=== PATIENT | female | born 1980 | race Caucasian/White ===

== ENCOUNTER 2016-10-14 17:52 | Emergency (ER) | payer BC, OTHER ==
[2016-10-14 18:41] VITALS: BP 119/66
--- NOTE | 2016-10-14 19:06 | UC ---
Throat Pain/Nasal James HPI - HPI Summary HPI Summary: 35 yo female with sinus pressure and pain x days post nasal drip upper teeth and gums sensitive - History of Current Complaint Chief Complaint: UCRespiratory Stated Complaint: SINUS CONGESTION Time Seen by Provider: 10/14/16 18:47 Hx Last Menstrual Period: 10/12/15 Onset/Duration: Sudden Onset Severity: Moderate Pain Intensity: 6 Pain Scale Used: 0-10 Numeric Cough: Nonproductive Associated Signs & Symptoms: Positive: Sinus Discomfort, Nasal Discharge - Epiglottits Risk Factors Epiglottis Risk Factors: Negative - Allergies/Home Medications Allergies/Adverse Reactions: Allergies Allergy/AdvReac Type Severity Reaction Status Date / Time Penicillins Allergy Unknown Rash Verified 09/03/14 14:20 PMH/Surg Hx/FS Hx/Imm Hx Previously Healthy: Yes Endocrine History Of: Reports: Thyroid Disease Denies: Diabetes Cardiovascular History Of: Denies: Cardiac Disorders, Hypertension Respiratory History Of: Denies: COPD, Asthma GI/ History Of: Denies: Ulcer - Surgical History Surgical History: Yes Surgery Procedure, Year, and Place: WISDOM TEETH EXTRACTION - Family History Known Family History: Positive: Cardiac Disease, Hypertension, Diabetes - Social History Alcohol Use: Weekly Substance Use Type: None, Marijuana Substance Use Comment - Amount & Last Used: once a year Smoking Status (MU): Former Smoker Review of Systems Constitutional: Negative Skin: Negative Eyes: Negative ENT: Dental Pain, Sore Throat, Ear Ache, Nasal Discharge Respiratory: Cough Cardiovascular: Negative Gastrointestinal: Negative Genitourinary: Negative Motor: Negative Neurovascular: Negative Musculoskeletal: Negative Neurological: Negative Psychological: Negative All Other Systems Reviewed And Are Negative: Yes Physical Exam Triage Information Reviewed: Yes Appearance: Well-Appearing, No Pain Distress Vital Signs: Initial Vital Signs Temp 97.3 F 10/14/16 18:35 Pulse 82 10/14/16 18:35 Resp 18 10/14/16 18:35 BP 119/66 10/14/16 18:35 Pulse Ox 100 10/14/16 18:35 Eyes: Positive: Conjunctiva Clear ENT: Positive: Hearing grossly normal, Pharynx normal, Nasal congestion, Nasal drainage, TMs normal. Negative: Tonsillar exudate, Trismus, Muffled/hoarse voice Neck: Positive: Supple, Nontender Respiratory: Positive: Lungs clear, Normal breath sounds Cardiovascular: Positive: RRR, No Murmur Musculoskeletal: Positive: ROM Intact, No Edema Neurological: Positive: Alert Psychological Exam: Normal Skin Exam: Normal Skin: Positive: rashes Throat Pain/Nasal Course/Dx - Differential Dx/Diagnosis Provider Diagnoses: acute sinusitis Discharge - Discharge Plan Condition: Stable Disposition: HOME Prescriptions: Cefuroxime Axetil [Ceftin 250 MG] 250 mg PO BID #20 tab Patient Education Materials: Sinusitis (ED) Referrals: Tani Lott MD [Primary Care Provider] - If Needed Additional Instructions: recheck for new or worsening symptoms
== END 2016-10-14 19:11 | disposition home or self-care (01) ==
LOC: UCEAST 17:52
DX: J01.90 Acute sinusitis, unspecified (principal); Z88.0 Allergy status to penicillin; Z87.891 Personal history of nicotine dependence
CPT/HCPCS: 99212; G0463

== ENCOUNTER 2017-02-01 19:04 | Emergency (ER) | payer BC ==
[2017-02-01 19:16] VITALS: BP 120/67
[2017-02-01] MEDS ORDERED: DOXYcycline CAP(*) 100 MG PO ONE ×2 (20:20→20:27)
--- NOTE | 2017-02-01 20:37 | UC ---
Throat Pain/Nasal James HPI - HPI Summary HPI Summary: PATIENT PRESENTS TO WITH CC OF SINUS PRESSURE AND PAIN OVER MAXILLA AND FRONTAL SINUS X 2 DAYS. SHE HAS A PROMINENT HISTORY OF SINUS INFECTIONS AND STATES SHE HAS ABOUT 3 OF THEM PER YEAR. SHE HAS BEEN SEEN BY ENT WHO STATES SHE HAS A DEVIATED SEPTUM, BUT WAS NEGATIVE FOR POLYPS OR POCKETS WHICH WOULD CREATE A HUB FOR INFECTION. SHE ENDORSES BILATERAL EAR PAIN WITH "POPPING" AND HEADACHE ASSOCIATED WITH SINUS PRESSURE. SHE STATES THIS FEELS LIKE A TYPICAL SINUS INFECTION TO HER AND HAS TAKEN SUDAFED WITHOUT RELIEF. SHE HAS TAKEN MULTIPLE ANTIBIOTICS IN THE PAST, BUT DOES NOT RECALL WHICH HAS WORKED WELL FOR HER. SHE IS ALLERGIC TO PENICILLINS. - History of Current Complaint Chief Complaint: UCRespiratory Stated Complaint: CONGESTION Time Seen by Provider: 02/01/17 20:00 Hx Obtained From: Patient Hx Last Menstrual Period: NOW ?: No Onset/Duration: Sudden Onset Severity: Moderate Pain Intensity: 5 Pain Scale Used: 0-10 Numeric Associated Signs & Symptoms: Positive: Sinus Discomfort, Nasal Discharge - Epiglottits Risk Factors Epiglottis Risk Factors: Negative - Allergies/Home Medications Allergies/Adverse Reactions: Allergies Allergy/AdvReac Type Severity Reaction Status Date / Time Penicillins Allergy Unknown Rash Verified 02/01/17 19:16 Home Medications: Home Medications Diphenhydramine HCl (Sleep) [Simply Sleep] PRN 02/01/17 [History] Ibuprofen [Midol] 02/01/17 [History] Pseudoephedrine TAB* [Sudafed TAB*] 60 mg PO PRN 02/01/17 [History] PMH/Surg Hx/FS Hx/Imm Hx Previously Healthy: Yes - RECURRENT SINUS INFECTIONS Endocrine History Of: Reports: Thyroid Disease Denies: Diabetes Cardiovascular History Of: Denies: Cardiac Disorders, Hypertension Respiratory History Of: Denies: COPD, Asthma GI/ History Of: Denies: Ulcer - Surgical History Surgical History: Yes Surgery Procedure, Year, and Place: WISDOM TEETH EXTRACTION - Family History Known Family History: Positive: Cardiac Disease, Hypertension, Diabetes - Social History Occupation: Employed Full-time Lives: With Family Alcohol Use: Weekly Alcohol Amount: 3X/WEEK Substance Use Type: Marijuana Substance Use Comment - Amount & Last Used: once a year Smoking Status (MU): Former Smoker Review of Systems Constitutional: Negative Skin: Negative ENT: Ear Ache, Nasal Discharge, Other - SINUS PRESSURE Respiratory: Negative Cardiovascular: Negative Motor: Negative Neurovascular: Negative Neurological: Negative Psychological: Negative All Other Systems Reviewed And Are Negative: Yes Physical Exam Triage Information Reviewed: Yes Appearance: Well-Appearing, Well-Nourished Vital Signs: Initial Vital Signs Temp 97.4 F 02/01/17 19:12 Pulse 73 02/01/17 19:12 Resp 16 02/01/17 19:12 BP 120/67 02/01/17 19:12 Pulse Ox 98 02/01/17 19:12 Vital Signs Reviewed: Yes Eye Exam: Normal Eyes: Positive: Conjunctiva Clear ENT: Positive: Pharynx normal, Nasal congestion, Nasal drainage, Other: - SINUS PRESSURE AND PAIN ON PALPATION OVER MAXILLARY AND FRONTAL SINUS Dental Exam: Normal Neck exam: Normal Neck: Positive: Supple, Nontender, No Lymphadenopathy Respiratory Exam: Normal Respiratory: Positive: Chest non-tender, Lungs clear Cardiovascular Exam: Normal Cardiovascular: Positive: RRR Musculoskeletal Exam: Normal Musculoskeletal: Positive: Strength Intact Neurological Exam: Normal Neurological: Positive: Alert Psychological Exam: Normal Psychological: Positive: Normal Response To Family, Age Appropriate Behavior Skin Exam: Normal Throat Pain/Nasal Course/Dx - Course Course Of Treatment: PATIENT NOTES TO RECURRENT SINUS INFECTIONS (APPROX 3 PER YEAR) AND STATES PRESSURE AND PAIN WHICH IS SIMILAR TO PREVIOUS INFECTIONS. SUDAFED WITHOUT RELIEF. SHE IS ALLERGIC TO PENCILLINS. EDUCATED PATIENT ON ANTIBIOTIC USE AND OVERUSE AND TO FOLLOW UP WITH ENT IF RECURRENCE IS HAPPENING. DOXYCYCLINE PRESCRIBED X 5 DAYS. STARTED HER ON A DOSE IN THE ED. DENIES FEVER, CHILLS OR SWEATS. ENCOURAGED SUDAFED AND PROBIOTICS ON OPPOSITE SCHEDULE OF ANTIBIOTICS. - Differential Dx/Diagnosis Differential Diagnosis/HQI/PQRI: Otitis Media, Sinusitis, URI Provider Diagnoses: SINUSITIS Discharge - Discharge Plan Condition: Stable Disposition: HOME Prescriptions: DOXYcycline CAP(*) [DOXYcycline 100MG CAP(*)] 100 mg PO BID #10 cap MDD 2 Patient Education Materials: Sinusitis (ED) Referrals: Tani Lott MD [Primary Care Provider] - Additional Instructions: Follow up with PCP Follow up with ENT Take the antibiotic as prescribed to you Sudafed and nasal sprays for relief.
== END 2017-02-01 20:27 | disposition home or self-care (01) ==
LOC: UCEAST 19:04
DX: J32.9 Chronic sinusitis, unspecified (principal); E07.9 Disorder of thyroid, unspecified; Z88.0 Allergy status to penicillin; Z87.891 Personal history of nicotine dependence
CPT/HCPCS: 99212; A9270-GY; G0463

== ENCOUNTER 2017-09-27 13:31 | Emergency (ER) | payer BC ==
[2017-09-27 13:47] VITALS: BP 131/63
--- NOTE | 2017-09-27 14:15 | UC ---
Respiratory Complaint HPI - HPI Summary HPI Summary: 36 yo female with one month or greater hx of sinus pressure and pain as well as nasal congestion/runny nose and postnasal drip right ear pressure and decreased hearing hx sinusitis no f/c no n/v/d no cp or sob - History of Current Complaint Chief Complaint: UCRespiratory Stated Complaint: sinus congestion Time Seen by Provider: 09/27/17 13:57 Hx Obtained From: Patient Hx Last Menstrual Period: 08/30/17 Onset/Duration: Gradual Onset, Lasting Weeks Timing: Constant Severity Initially: Mild Severity Currently: Moderate Pain Intensity: 4 Pain Scale Used: 0-10 Numeric Character: Cough: Nonproductive Associated Signs And Symptoms: Positive: Nasal Congestion, Sinus Discomfort Related History: Similar Episode/Dx as: - sinusitis - Allergies/Home Medications Allergies/Adverse Reactions: Allergies Allergy/AdvReac Type Severity Reaction Status Date / Time Penicillins Allergy Unknown Rash Verified 09/27/17 13:47 Home Medications: Home Medications Cetirizine* [ZyrTEC 10 MG TAB*] 10 mg PO DAILY 09/27/17 [History Confirmed 09/27] PMH/Surg Hx/FS Hx/Imm Hx Previously Healthy: Yes - Surgical History Surgical History: Yes Surgery Procedure, Year, and Place: WISDOM TEETH EXTRACTION - Family History Known Family History: Positive: Cardiac Disease, Hypertension, Diabetes - Social History Alcohol Use: Weekly Alcohol Amount: 3X/WEEK Substance Use Type: None Substance Use Comment - Amount & Last Used: once a year Smoking Status (MU): Former Smoker Have You Smoked in the Last Year: No - Immunization History Most Recent Influenza Vaccination: none Review of Systems Constitutional: Negative Skin: Negative Eyes: Negative ENT: Nasal Discharge, Sinus Congestion, Sinus Pain/Tenderness Respiratory: Negative Cardiovascular: Negative Gastrointestinal: Negative Genitourinary: Negative Motor: Negative Neurovascular: Negative Musculoskeletal: Negative Neurological: Negative Psychological: Negative Is Patient Immunocompromised?: No All Other Systems Reviewed And Are Negative: Yes Physical Exam Triage Information Reviewed: Yes Appearance: Well-Appearing, No Pain Distress, Well-Nourished Vital Signs: Initial Vital Signs Temp 98.2 F 09/27/17 13:43 Pulse 78 09/27/17 13:43 Resp 16 09/27/17 13:43 BP 131/63 09/27/17 13:43 Pulse Ox 99 09/27/17 13:43 Vital Signs Reviewed: Yes Eyes: Positive: Conjunctiva Clear ENT: Positive: Nasal congestion, TM bulging - R, Sinus tenderness, Uvula midline. Negative: Hearing grossly normal - sl decrease right ear, Pharyngeal erythema, Tonsillar swelling, Tonsillar exudate, Trismus, Muffled voice, Hoarse voice, Dental tenderness Neck: Positive: Supple, Nontender, No Lymphadenopathy Respiratory: Positive: Lungs clear, Normal breath sounds, No respiratory distress, No accessory muscle use Cardiovascular: Positive: RRR, No Murmur Neurological: Positive: Alert Psychological Exam: Normal Skin Exam: Normal UC Diagnostic Evaluation - Laboratory O2 Sat by Pulse Oximetry: 99 - normal/not hypoxic Respiratory Course/Dx - Differential Dx/Diagnosis Provider Diagnoses: acute sinusitis Discharge - Discharge Plan Condition: Stable Disposition: HOME Prescriptions: ceFUROXime TAB(*) [Ceftin TAB(*)] 250 mg PO BID #20 tab Patient Education Materials: Sinusitis (ED) Referrals: Tani Lott MD [Primary Care Provider] - As Soon As Possible (recheck as planned ) Additional Instructions: saline nasal spray recheck for new or worsening symptoms
== END 2017-09-27 14:22 | disposition home or self-care (01) ==
LOC: UCEAST 13:31
DX: J01.90 Acute sinusitis, unspecified (principal); Z88.0 Allergy status to penicillin; Z87.891 Personal history of nicotine dependence
CPT/HCPCS: 99212; G0463

== ENCOUNTER 2019-10-07 14:59 | Emergency (ER) | payer BC ==
[2019-10-07 15:22] VITALS: BP 130/78
--- NOTE | 2019-10-07 16:20 | UC ---
Throat Pain/Nasal Jamse HPI - HPI Summary HPI Summary: 38-year-old female presents with 3 day history of sore throat. Symptoms are associated with some mild nasal congestion, bilateral ear fullness, and occasional dry nonproductive cough. States this morning she looked strep throat noticed some white spots on her tonsils. Denies fever, chills, dysphagia , chest pain, shortness of breath, abdominal pain, nausea, or vomiting. - History of Current Complaint Chief Complaint: UCGeneralIllness Stated Complaint: SORE THROAT Time Seen by Provider: 10/07/19 15:38 Hx Obtained From: Patient Hx Last Menstrual Period: 08/30/17 Pain Intensity: 6 - Allergies/Home Medications Allergies/Adverse Reactions: Allergies Allergy/AdvReac Type Severity Reaction Status Date / Time Penicillins Allergy Rash Verified 10/07/19 15:22 PMH/Surg Hx/FS Hx/Imm Hx Previously Healthy: Yes Psychological History: Depression - Surgical History Surgical History: Yes Surgery Procedure, Year, and Place: WISDOM TEETH EXTRACTION - Family History Known Family History: Positive: Cardiac Disease, Hypertension, Diabetes - Social History Occupation: Employed Full-time Lives: With Family Alcohol Use: Daily Alcohol Amount: 3X/WEEK Substance Use Type: Marijuana Substance Use Comment - Amount & Last Used: 2 times a week Smoking Status (MU): Former Smoker Have You Smoked in the Last Year: No - Immunization History Most Recent Influenza Vaccination: none Review of Systems All Other Systems Reviewed And Are Negative: Yes Constitutional: Negative: Fever, Chills Skin: Negative: Rash Eyes: Negative: Drainage, Eye Redness ENT: Positive: Sore Throat, Nasal Discharge, Sinus Congestion. Negative: Ear Ache, Sinus Pain/Tenderness Respiratory: Positive: Cough. Negative: Shortness Of Breath Cardiovascular: Negative: Chest Pain Gastrointestinal: Negative: Abdominal Pain, Vomiting, Nausea Genitourinary: Positive: Negative Musculoskeletal: Positive: Negative Neurological: Positive: Negative Is Patient Immunocompromised?: No Physical Exam - Summary Physical Exam Summary: GENERAL APPEARANCE: Alert and cooperative adult female who appears to be in no acute distress. EYES: Conjunctiva clear. No drainage. EARS: External auditory canals and tympanic membranes clear, hearing grossly intact. NOSE: Mild nasal congestion. No nasal discharge. THROAT: Pharyngeal erythema. 1+ tonsils with exudate. Uvula midline. NECK: Neck supple, non-tender without lymphadenopathy. CARDIAC: Normal S1 and S2. No S3, S4 or murmurs. Rhythm is regular. There is no peripheral edema, cyanosis or pallor. Extremities are warm and well perfused. Capillary refill is less than 2 seconds. Peripheral pulses intact. LUNGS: Clear to auscultation without rales, rhonchi, wheezing or diminished breath sounds. ABDOMEN: Positive bowel sounds. Soft, nondistended, nontender. No guarding or rebound. No masses or hepatosplenomegally. MUSKULOSKELETAL: ROM intact to all extremities. No joint erythema or tenderness. Normal muscular development. Normal gait. SKIN: Skin normal color, texture and turgor with no lesions or eruptions. Triage Information Reviewed: Yes Vital Signs: Initial Vital Signs Temp 98.8 F 10/07/19 15: Pulse 69 10/07/19 15: Resp 16 10/07/19 15:17 BP 130/78 10/07/19 15: Pulse Ox 100 10/07/19 15:17 Vital Signs Reviewed: Yes Throat Pain/Nasal Course/Dx - Course Course Of Treatment: 38-year-old female presents with 3 day history of sore throat. Symptoms are associated with some mild nasal congestion, bilateral ear fullness, and occasional dry nonproductive cough. States this morning she looked strep throat noticed some white spots on her tonsils. Denies fever, chills, dysphagia , chest pain, shortness of breath, abdominal pain, nausea, or vomiting. Afebrile. Vital signs stable. Patient had some mild nasal congestion, normal TMs, pharyngeal erythema, 1+ tonsils with exudate, no cervical lymphadenopathy, clear bilateral breath sounds, and otherwise unremarkable exam. Rapid strep test was negative. Reviewed results with the patient. Recommending symptomatic treatment for viral pharyngitis. She is to follow-up with her primary care provider in 5-7 days if symptoms are not improving. Anticipatory guidance warning symptoms were reviewed with the patient. Verbalizes understanding and agrees with plan of care. - Differential Dx/Diagnosis Differential Diagnosis/HQI/PQRI: Mononucleosis, Peritonsillar Abscess, Pharyngitis, Tonsillitis, URI Provider Diagnosis: Acute viral pharyngitis Discharge ED - Sign-Out/Discharge Documenting (check all that apply): Patient Departure All imaging exams completed and their final reports reviewed: No Studies - Discharge Plan Condition: Stable Disposition: HOME Patient Education Materials: Pharyngitis (ED) Referrals: Tani Lott MD [Primary Care Provider] - Additional Instructions: Your rapid strep test in the clinic today was negative. Your symptoms are likely from a viral infection. Viral infections do not respond to antibiotics and are limited to the treatment of symptoms. Viral infections typically run their course in 7-10 days. Drink plenty of fluids to avoid dehydration especially if you are running any fever. Use salt water gargles several times a day. Take over the counter acetaminophen (Tylenol) or ibuprofen (Advil, Motrin) according to directions as needed for pain or fever. You may also use Chloraseptic spray or Cepacol lonzenges according to directions which contain a numbing medication and can provide some temporary relief from your sore throat. Return here or follow up with your primary care provider in 5-7 days if symptoms persist. Seek immediate medical attention in the emergency room if you have fever greater than 100.5 F despite taking acetaminophen or ibuprofen, are unable to swallow or develop drooling, are unable to open your mouth fully, are unable to eat or drink, have pain that is not relieved with over the counter pain medication, or have any difficulty breathing. - Billing Disposition and Condition Condition: STABLE Disposition: Home
== END 2019-10-07 16:35 | disposition home or self-care (01) ==
LOC: UCEAST 14:59
DX: J02.9 Acute pharyngitis, unspecified (principal); R09.81 Nasal congestion; Z87.891 Personal history of nicotine dependence; Z88.0 Allergy status to penicillin
CPT/HCPCS: 87651; 99211; G0463

== ENCOUNTER 2019-10-10 21:33 | Emergency (ER) | payer BC ==
[2019-10-10 21:57] VITALS: BP 122/82
--- NOTE | 2019-10-10 22:30 | UC ---
Throat Pain/Nasal James HPI - HPI Summary HPI Summary: the patient is a 38-year-old female with a five-day history of sore throat. She may be running a fever. She has had chills. Her sore throat has been getting progressively worse. And now she has severe pain from left-sided lymph nodes. She still has her tonsils. She is a learning disabilities teacher. She has had no nausea or vomiting. She has a headache and some mild muscle aches. She denies any abdominal pain. She has never had mono. - History of Current Complaint Chief Complaint: UCGeneralIllness Stated Complaint: SORE THROAT EXENDING TO EAR Time Seen by Provider: 10/10/19 21:42 Hx Obtained From: Patient Hx Last Menstrual Period: 08/30/17 Onset/Duration: Gradual Onset, Lasting Days - 5 Severity: Moderate Pain Intensity: 7 Pain Scale Used: 0-10 Numeric Cough: None Associated Signs & Symptoms: Positive: Dysphagia, Fever - has felt feverish - Epiglottits Risk Factors Epiglottis Risk Factors: Negative - Allergies/Home Medications Allergies/Adverse Reactions: Allergies Allergy/AdvReac Type Severity Reaction Status Date / Time Penicillins Allergy Rash Verified 10/10/19 21:57 Home Medications: Home Medications Carbonyl Iron TAB* [Feosol TAB*] 45 mg PO DAILY 10/10/19 [History Confirmed ] PMH/Surg Hx/FS Hx/Imm Hx Previously Healthy: Yes Psychological History: Anxiety, Depression - Surgical History Surgical History: Yes Surgery Procedure, Year, and Place: WISDOM TEETH EXTRACTION - Family History Known Family History: Positive: Cardiac Disease, Hypertension, Diabetes - Social History Alcohol Use: Daily Alcohol Amount: 3X/WEEK Substance Use Type: Marijuana Substance Use Comment - Amount & Last Used: 2 times a week Smoking Status (MU): Former Smoker Have You Smoked in the Last Year: No - Immunization History Most Recent Influenza Vaccination: none Review of Systems All Other Systems Reviewed And Are Negative: Yes Constitutional: Positive: Fever, Chills, Fatigue Skin: Positive: Negative Eyes: Positive: Negative ENT: Positive: Sore Throat Respiratory: Positive: Negative Cardiovascular: Positive: Negative Gastrointestinal: Positive: Negative Genitourinary: Positive: Negative Motor: Positive: Negative Neurovascular: Positive: Negative Musculoskeletal: Positive: Myalgia Neurological: Positive: Headache - mild Physical Exam Triage Information Reviewed: Yes Appearance: Well-Appearing, No Pain Distress, Well-Nourished Vital Signs: Initial Vital Signs Temp 99.7 F 10/10/19 21:50 Pulse 89 10/10/19 21:50 Resp 18 10/10/19 21:50 BP 122/82 10/10/19 21:50 Pulse Ox 100 10/10/19 21:50 Vital Signs Reviewed: Yes Eyes: Positive: Conjunctiva Clear ENT: Positive: Pharyngeal erythema, Nasal congestion, TMs normal, Tonsillar swelling, Tonsillar exudate, Uvula midline. Negative: Nasal drainage, Trismus, Muffled voice, Hoarse voice Neck: Positive: Supple, Enlarged Nodes @ - tender ant and post cerv LNs L>R Respiratory: Positive: Lungs clear, Normal breath sounds, No respiratory distress, No accessory muscle use Cardiovascular: Positive: RRR, No Murmur Abdomen Description: Positive: Nontender, No Organomegaly, Soft Musculoskeletal: Positive: ROM Intact, No Edema Neurological: Positive: Alert Psychological Exam: Normal Skin Exam: Normal Diagnostics - Laboratory Lab Results: strep (-) Throat Pain/Nasal Course/Dx - Differential Dx/Diagnosis Provider Diagnosis: Tonsillitis with exudate Discharge ED - Sign-Out/Discharge Documenting (check all that apply): Patient Departure All imaging exams completed and their final reports reviewed: No Studies - Discharge Plan Condition: Stable Disposition: HOME Prescriptions: predniSONE [Prednisone 20 MG TAB] 60 mg PO DAILY #6 tab Patient Education Materials: Tonsillitis (ED) Forms: *Work Release Referrals: Tani Lott MD [Primary Care Provider] - 2 Days Additional Instructions: if not better in a few days I suggest a blood test to check for mono - Billing Disposition and Condition Condition: STABLE Disposition: Home
== END 2019-10-10 22:43 | disposition home or self-care (01) ==
LOC: UCEAST 21:33
DX: J03.90 Acute tonsillitis, unspecified (principal); R53.83 Other fatigue; Z88.0 Allergy status to penicillin; Z87.891 Personal history of nicotine dependence
CPT/HCPCS: 87651; 99212; G0463; J7512